=== PATIENT | female | born 1965 | race Caucasian/White ===

== ENCOUNTER → 2021-06-01 | Day surgery (SDC) | payer OTHER ==
[~2021-06-01] VITALS: Ht 160 cm; Wt 65.8 kg
[~2021-06-01] MED LIST: ASPIRIN EC81 M1 PO; COREG12.5 MG PO; COZAAR50 MG PO; CYMBALTA60 MG PO; DAILY VALUE1 EACH PO; FLEXERIL5 MG PO; HCTZ12.5 MG PO; LIPITOR40 MG PO; NEURONTIN400 MG PO; OXY-IR 5MG5 MG PO; PREGABALIN50 MG PO
[2021-06-01 08:22] LABS: ALBUMIN 3.1 g/dL (3.4-5.0); BILIRUBIN - TOTAL 0.4 mg/dL (0.2-1.0); BUN/CREAT RATIO (CALC) 20.7 RATIO; CREATININE 0.92 mg/dL (0.51-0.95); GLOBULIN (CALCULATION) 3.8 g/dL; POTASSIUM 4.4 mmol/L (3.5-5.1); TOTAL PROTEIN 6.9 g/dL (6.4-8.2)
[2021-06-01 08:23] LABS: HCT 38.9 % (37.0-47.0); MCHC 30.8 g/dL (32.0-36.0); MCV 84.4 fL (78.0-100.0); MPV 9.2 fL (6.0-9.5); RBC 4.61 M/uL (4.20-5.40); RDW 17.1 % (11.5-14.0); WBC 10.2 K/uL (4.0-10.5)
== END | disposition home or self-care (01) ==
LOC: FAS 07:18
PROVIDERS: Surgery
DX: R19.5 Other fecal abnormalities (principal); K58.9 Irritable bowel syndrome, unspecified; I10 Essential (primary) hypertension; E78.5 Hyperlipidemia, unspecified; Z88.0 Allergy status to penicillin; Z88.1 Allergy status to other antibiotic agents; Z88.8 Allergy status to other drugs, medicaments and biological substances
CPT/HCPCS: 36415; 80053; J1610; J2250; J7120

== ENCOUNTER 2021-09-23 07:49 | Emergency (ER) | payer OTHER ==
[2021-09-23 10:08] LABS: BASOPHIL 0.2 % (0-2); EOSINOPHIL 0.8 % (0-5); HCT 43.4 % (37.0-47.0); HGB 13.8 g/dl (12.5-16.0); LYMPHOCYTE 10.6 % (15-48); MCH 27.2 pg (25.0-31.0); MCHC 31.8 g/dL (32.0-36.0); MCV 85.6 fL (78.0-100.0); MONOCYTE 3.4 % (0-12); MPV 10.1 fL (6.0-9.5); NEUTROPHIL 84.6 % (41-80); NRBC 0; PLT 259 K/uL (150-400); RBC 5.07 M/uL (4.20-5.40); RDW 16.6 % (11.5-14.0); WBC 16.8 K/uL (4.0-10.5)
[2021-09-23 10:24] LABS: ALBUMIN 3.4 g/dL (3.4-5.0); BILIRUBIN - TOTAL 0.5 mg/dL (0.2-1.0); C-REACTIVE PROTEIN 0.2 mg/dL (<=0.90); CREATININE 0.8 mg/dL (0.51-0.95); GLOBULIN (CALCULATION) 3.8 g/dL; MAGNESIUM 1.6 mg/dL (1.8-2.4); POTASSIUM 3.6 mmol/L (3.5-5.1); TOTAL PROTEIN 7.2 g/dL (6.4-8.2)
[2021-09-23 11:26] LABS: BILIRUBIN NEGATIVE (NEGATIVE); BLOOD NEGATIVE Ery/uL (NEGATIVE); CLARITY CLEAR (CLEAR); COLOR YELLOW (YELLOW); GLUCOSE (U) NORMAL (NORMAL); LEUKOCYTES NEGATIVE Leu/uL (NEGATIVE); NITRITE NEGATIVE (NEGATIVE); PROTEIN NEGATIVE (NEGATIVE); SPECIFIC GRAVITY 1.025 (1.001-1.030); UROBILINOGEN 0.2 mg/dL (0.2-1.0)
[2021-09-23] MEDS ORDERED: VENTOLIN HFA18 GM INH (12:09)
[2021-09-23] MEDS ORDERED: CLEOCIN300 MG PO (12:09)
[2021-09-23] MEDS ORDERED: LEVAQUIN750 MG PO (12:09)
== END 2021-09-23 13:37 | disposition home or self-care (01) ==
LOC: FER 07:49
PROVIDERS: Emergency Medicine
DX: J69.0 Pneumonitis due to inhalation of food and vomit (principal); I10 Essential (primary) hypertension; F17.210 Nicotine dependence, cigarettes, uncomplicated; Z88.0 Allergy status to penicillin; Z88.1 Allergy status to other antibiotic agents
CPT/HCPCS: 36415; 71250; 80053; 81003; 82728; 83615; 83735; 84145; 84484; 85025; 86140; 87088; 93005; 94010; J1956; J2405